=== PATIENT | male | born 2000 | race Caucasian/White ===

== ENCOUNTER 2024-02-14 06:58 | Day surgery (SDC) | payer BC, OTHER ==
[2024-02-14] MEDS ORDERED: Lactated Ringers 1,000 ML IV SCH (07:00)
[2024-02-14] MEDS ORDERED: fentaNYL 50 MCG/ML SDV ONE ×2 (07:25)
[2024-02-14] MEDS ORDERED: Midazolam 1 MG/ML 2 ML SDV ONE (07:25)
[2024-02-14] MEDS ORDERED: Propofol 200 MG/20 ML SDV ONE ×2 (07:25)
[2024-02-14] MEDS ORDERED: ePHEDrine 50 MG/ML SDV ONE (07:25)
[2024-02-14] MEDS ORDERED: Flumazenil 0.1 MG/ML 10 ML MDV ONE (07:25)
== END 2024-02-14 08:15 | disposition home or self-care (01) ==
LOC: CC.SDS 06:58
PROVIDERS: ATTEND Family Medicine
DX: K52.9 Noninfective gastroenteritis and colitis, unspecified (principal); Z88.0 Allergy status to penicillin; Z79.899 Other long term (current) drug therapy
CPT/HCPCS: 00811; J2250; J2704; J3010; J3490